=== PATIENT | male | born 1990 | race Caucasian/White ===

== ENCOUNTER → 2023-07-30 09:48 | Outpatient (CLI) | payer OTHER, SELFPAY ==
[2023-07-30 10:51] LABS: Cholesterol 146 mg/dL (140-199); HDL Cholesterol 58 mg/dL (40-60); LDL Cholesterol Calculated 77 mg/dL (<100); Triglycerides 54 mg/dL (35-150)
[2023-07-30 11:08] LABS: Hemoglobin A1C% w Est Avg Glu 4.9 % (4.0-6.0)
== END ==
PROVIDERS: PCP Family Medicine; Referring Provider Family Medicine; Visit Provider Family Medicine
DX: Z13.220 Encounter for screening for lipoid disorders (principal); Z13.1 Encounter for screening for diabetes mellitus
CPT/HCPCS: 36415; 80061; 83036